=== PATIENT | female | born 1985 | race Caucasian/White ===

== ENCOUNTER 2025-03-19 09:52 | Emergency (ER) | payer OTHER, SELFPAY ==
[2025-03-19 10:02] VITALS: BP 136/76; PULSE 79; RESP 19; TEMP 36.4; O2SAT 100; BMI 25.6
--- NOTE | 2025-03-19 10:06 | DI.RAD.S_ITS ---
PROCEDURE: XR CHEST 1V
--- NOTE | 2025-03-19 10:12 | ED_ITS ---
HPI - Arrhythmia/Palpitations
--- NOTE | 2025-03-19 10:12 | ED.ARRPALP ---
HPI - Arrhythmia/Palpitations General Chief Complaint: Arrhythmia/Palpitations Stated Complaint: Heart palpitations, tired Time Seen by Provider: 03/19/25 10:12 Source: patient Mode of arrival: Ambulatory History of Present Illness HPI narrative: 39 years old female without comorbidities came in today complaining of palpitation as irregular heartbeats off and on since past Thursday without pounding heartbeats, racing heartbeat, dizziness, lightheadedness, loss of consciousness, chest pain, shortness of breath, nausea vomiting, sweating, fever, runny nose, sore throat, coughing, dehydration, diarrhea, urine problem, abdominal pain, back pain, headaches. She denied any history of heart problem. She reported no chest pain or shortness of breath with exercise. Related Data Allergies Allergy/AdvReac Type Severity Reaction Status Date / Time No Known Drug Allergies Allergy Verified 03/19/25 10:03 Review of Systems Review of Systems Narrative: Positive for palpitation. Negative for pounding heartbeats, racing heartbeat, dizziness, lightheadedness, loss of consciousness, chest pain, shortness of breath, nausea vomiting, sweating, fever, runny nose, sore throat, coughing, dehydration, diarrhea, urine problem, abdominal pain, back pain, headaches. Patient History Social History Smoking Status: Never smoker Smoking Status: Never smoker Exam Narrative Exam Narrative: GENERAL: Alert awake without acute distress HEAD: Atraumatic. Normocephalic. NECK: Trachea midline. Non tender CARDIOVASCULAR: Regular rate and rhythm without murmurs, gallops, or rubs. RESPIRATORY: Clear to auscultation. Breath sounds equal bilaterally. No wheezes, rales, or rhonchi. GASTROINTESTINAL: Abdomen soft, non-tender, nondistended. EXTREMITIES: No edema or joint tenderness. BACK: Nontender without deformity or crepitance. No flank tenderness. NEURO: AOx3. SKIN: No rash or erythema of visible areas Initial Vital Signs Initial Vital Signs: Vital Signs Temperature 97.6 F 03/19/25 10:02 Pulse Rate 79 03/19/25 10:02 Respiratory Rate 19 03/19/25 10:02 Blood Pressure 136/76 03/19/25 10:02 Pulse Oximetry 100 03/19/25 10:02 Oxygen Delivery Method Room Air 03/19/25 10:02 Course Orders Ordered: ED Orders 03/19/25 10:06 XR chest 1V Stat EKG-12 Lead Stat 03/19/25 10:40 Complete Blood Count AUTO DIFF Stat Comprehensive Metabolic Panel Stat Lipase Stat Magnesium Stat NT-proBNP (BNP-Adult 18+) Stat PTT Partial Thromboplastin Lonny Stat Prothrombin Time INR Stat TSH [Thyroid Stimulating Hormone] Stat Troponin & CK Cardiac Panel Stat Discontinued Medications Aspirin (Aspirin 81 Mg Chew Tab) 324 mg PO NOW ONE Stop: 03/19/25 10:06 Last Admin: 03/19/25 10:27 Dose: 324 mg Documented By: [facility] Vital Signs Vital signs: Vital Signs - 8 hr 03/19/25 10:02 03/19/25 12:33 Temperature 97.6 F 99.2 F Pulse Rate 79 71 Respiratory Rate 19 16 Blood Pressure 136/76 132/71 Pulse Oximetry 100 98 Oxygen Delivery Method Room Air Room Air MDM - Arrhythmia/Palpitations Lab Data 03/19/25 10:40 03/19/25 10:40 Labs: Lab Results 03/19/25 Range/Units 10:40 WBC 8.2 (4.5-11.0) X10^3/uL RBC 4.67 (4.0-5.2) X10^6/uL Hgb 14.1 (12.0-16.0) g/dL Hct 41.8 (36-46) % MCV 89.7 (80-100) fL MCH 30.1 (26-34) PG MCHC 33.6 (30-36) % RDW 13.5 (11.6-14.8) % Plt Count 295 (150-400) X10^3/uL Neut % (Auto) 58.6 (50-75) % Lymph % (Auto) 28.3 (25-40) % Chase % (Auto) 10.6 (3-14) % Eos % (Auto) 2.0 (2-4) % Baso % (Auto) 0.5 (0-2) % Neut # (Auto) 4800 (8359-5703) /uL Lymph # (Auto) 2300 (3429-4843) /uL Chase # (Auto) 900 (0-900) /uL Eos # (Auto) 200 (0-450) /uL Baso # (Auto) 0 (0-100) /uL PT 11.5 (9.4-12.5) SECONDS INR 1.0 (0.9-1.3) APTT 29 (25.1-36.5) SECONDS Sodium 139 (137-145) mmol/L Potassium 4.1 (3.4-5.1) mmol/L Chloride 105 (98-107) mmol/L Carbon Dioxide 26 (22-32) mmol/L BUN 23 H (7-17) mg/dL Creatinine 0.83 (0.52-1.04) mg/dL Estimated GFR > 60 (>60) mL/min BUN/Creatinine Ratio 27.7 H (6-22) Glucose 95 (70-99) mg/dL Calcium 10.9 H (8.4-10.2) mg/dL Magnesium 2.0 (1.6-2.3) mg/dL Total Bilirubin 0.4 (0.2-1.3) mg/dL AST 23 (14-36) IU/L ALT 20 (<35) IU/L Alkaline Phosphatase 63 (38-126) U/L Total Creatine Kinase 44 (30-135) U/L Troponin I < 0.012 (0.01-0.034) ng/mL NT-Pro-B Natriuret Pep < 20 (<125) pg/mL Total Protein 7.9 (6.3-8.2) g/dL Albumin 4.7 (3.5-5.0) g/dL Globulin 3.2 (1.7-4.1) g/dL Albumin/Globulin Ratio 1.5 (1.0-2.8) Lipase 96 (23-300) U/L TSH 2.48 (0.47-4.68) uIU/mL Point of Care Testing Test Results Negative Urine Dip Bedside Urine Glucose Negative Bedside Urine Bilirubin - Negative Bedside Urine Ketone - Negative Urine Specific Sidney 1.005 Bedside Urine Occult Blood - Negative Bedside Urine pH 6.0 Bedside Urine Protein - Negative Bedside Urine Urobilinogen - Negative Bedside Urine Nitrite - Negative Bedside Urine Leukocytes - Negative Esterase ECG Data Interpretation: EKG showed normal sinus rhythm at rate 71 beats per minute without ischemic ST-T changes. No prolonged QT. Normal axis. MDM Narrative Medical decision making narrative: 39 years old female without comorbidities came in today complaining of palpitation as irregular heartbeats off and on since past Thursday without pounding heartbeats, racing heartbeat, dizziness, lightheadedness, loss of consciousness, chest pain, shortness of breath, nausea vomiting, sweating, fever, runny nose, sore throat, coughing, dehydration, diarrhea, urine problem, abdominal pain, back pain, headaches. She denied any history of heart problem. She reported no chest pain or shortness of breath with exercise. On exam showed regular regular cardiac rhythm without murmur. Her abdominal exam, lung exam were normal. She alert oriented x4 without acute distress. Her lab showed normal CBC, PT INR PTT, troponin, BNP, LFT, lipase, TSH but her calcium was 10.9. She will repeat calcium with her PCP outpatient next 1 week. We will do ionized calcium which is send out for now. I asked her to drink plenty of fluid. Cardiology referral was sent. Discharge Plan Departure Patient Disposition: Home Clinical Impression: Palpitations, Hypercalcemia Instructions: DI for Arrhythmias Stand Alone Forms: Patient Portal/API
[2025-03-19] MEDS: ASPIRIN 81 MG CHEW TAB 324 MG PO (10:27)
[2025-03-19 10:48] LABS: Add Manual Diff / Slide Review NO; Hematocrit 41.8 % (36-46); Hemoglobin 14.1 g/dL (12.0-16.0); Lymphocytes Absolute Auto 2300 /uL (1100-4500); Mean Corpuscular HGB Conc 33.6 % (30-36); Mean Corpuscular Hemoglobin 30.1 PG (26-34); Mean Corpuscular Volume 89.7 fL (80-100); Platelet Count 295 X10^3/uL (150-400)
[2025-03-19 10:54] LABS: INR 1.0 (0.9-1.3); Prothrombin Time 11.5 SECONDS (9.4-12.5)
[2025-03-19 10:57] LABS: PTT Partial Thromboplastin Tim 29 SECONDS (25.1-36.5)
[2025-03-19 10:59] LABS: Alanine Aminotransferase 20 IU/L (<35); Albumin 4.7 g/dL (3.5-5.0); Albumin Globulin Ratio 1.5 (1.0-2.8); Alkaline Phosphatase 63 U/L (38-126); Blood Urea Nitrogen 23 mg/dL (7-17); Calcium 10.9 mg/dL (8.4-10.2); Carbon Dioxide 26 mmol/L (22-32); Chloride 105 mmol/L (98-107); Creatine Kinase 44 U/L (30-135); Estimated Glomerular Filt Rate > 60 mL/min (>60); Globulin 3.2 g/dL (1.7-4.1); Glucose 95 mg/dL (70-99); HEMOLYSIS < 15 (0-50); Lipase 96 U/L (23-300); Magnesium 2.0 mg/dL (1.6-2.3); Potassium 4.1 mmol/L (3.4-5.1); Sodium 139 mmol/L (137-145); Total Protein 7.9 g/dL (6.3-8.2)
[2025-03-19 11:10] LABS: Troponin I < 0.012 ng/mL (0.01-0.034)
[2025-03-19 11:18] LABS: NT-proBNP (BNP-Adult 18+) < 20 pg/mL (<125)
[2025-03-19 11:36] LABS: Thyroid Stimulating Hormone 2.48 uIU/mL (0.47-4.68)
--- NOTE | 2025-03-19 11:51 | PC.NURSE ---
Pt met with this RN in [facility] and stated that she was comfortable with assessment being completed in [facility]. Pt stated palpitations began Thursday morning and have been intermittent, describing it as feeling like her heart is flipping in her chest. Pt also reports generalized fatigue but denies all other symptoms (nausea, vomiting, SOB, chest pain/tightness). Denies any hx of cardiac issues and reports no changes in daily routine.
[2025-03-19 12:33] VITALS: BP 132/71; PULSE 71; RESP 16; TEMP 37.3; O2SAT 98
[2025-03-19 14:43] VITALS: BP 132/72; PULSE 65; RESP 16; O2SAT 99
== END 2025-03-19 14:44 | disposition home or self-care (01) ==
PROVIDERS: Emergency Provider Emergency Medicine
DX: R00.2 Palpitations (principal); E83.52 Hypercalcemia
CPT/HCPCS: 36415; 71045; 80053; 81003; 81025; 82330; 82550; 83690; 83735; 83880; 84443; 84484; 85025; 85610; 85730; 93005; 99284